=== PATIENT | female | born 1955 | race Caucasian/White ===

== ENCOUNTER → 2016-12-16 | Outpatient (CLI) | payer OTHER | LOC: CIMAGING 09:36 | PROVIDERS: ATTEND Physician Assistant | DX: Z12.31 Encounter for screening mammogram for malignant neoplasm of breast (principal) | CPT/HCPCS: G0202 ==

== ENCOUNTER 2017-02-10 17:43 | Emergency (ER) | payer OTHER ==
[2017-02-10] MEDS ORDERED: RANITIDINE 50 MG/2 ML VIAL IVP ONE (18:08)
[2017-02-10] MEDS ORDERED: methylPREDNISolone SOD SUCC 125 MG/2 ML VIAL IVP ONE (18:08)
[2017-02-10] MEDS ORDERED: NS 1,000 ML IV ONE (18:10)
--- NOTE | 2017-02-10 18:17 | EDPHY ---
H & P Time Seen by Provider: 02/10/17 17:53 HPI/ROS: CHIEF COMPLAINT: Hives, abdominal cramping, swollen lips, swollen eyes HISTORY OF PRESENT ILLNESS: 61-year-old female presents emergency department reporting that last night around 2 in the morning she developed hives. These were associated with swollen lips, swollen eyes, nausea, abdominal cramping. No difficulty swallowing. No shortness of breath. She had been out to dinner earlier that evening, and had a wide variety of dishes over the course of the evening. She has no known food allergies. Denies having tuna, slap [place], chase chase, dolphin fish. Denies a peppery taste any of the foods. She did have scallops. She has not had an allergy to shellfish seafood before. No diarrhea. No other individuals at the dinner have become ill. Patient was otherwise well prior to these events. She did have alcohol last night but denies excessive amounts. Reports no increased stress. The patient did take Benadryl this morning as well as at 3 o'clock this afternoon reports that the itching has improved. She is somewhat sleepy. No fever, chills, chest pain, shortness of breath, palpitations, vomiting, diarrhea, urinary complaints, headache, lightheadedness. REVIEW OF SYSTEMS: Aside from elements discussed in the HPI, a comprehensive 10-point review of systems was reviewed and is negative. PAST MEDICAL HISTORY: Nunu menopausal. SOCIAL HISTORY: Nonsmoker. . VITAL SIGNS Reviewed by me. GENERAL: Well-developed, well-nourished, resting comfortably in no respiratory distress. HEENT: Atraumatic. Eyes: Slight edema of the upper eyelids. Pupils equal round reactive to light. No icterus, no injection. Mouth: moist mucous membranes. No edema of the uvula. Clear airway. No erythema or lesions. Neck: supple with no adenopathy. No stridor. LUNGS: Clear to auscultation bilaterally, no wheezes, rhonchi or rales. CARDIAC: Regular rate and rhythm, no rubs, murmurs or gallops. ABDOMEN: Soft, nontender, nondistended, bowel sounds normal. BACK: No CVA tenderness. EXTREMITIES: No trauma. No edema. Range of motion is normal throughout. NEURO: Alert and oriented, grossly nonfocal. SKIN: Warm and dry, widespread urticarial rash on the arms, chest, back, abdomen, legs. PSYCHIATRIC: Normal mentation, no agitation. Smoking Status: Never smoked Constitutional: Initial Vital Signs Temperature (C) 37.2 C 02/10/17 17:57 Heart Rate 82 02/10/17 17:57 Respiratory Rate 18 02/10/17 17:57 Blood Pressure 134/90 H 02/10/17 17:57 O2 Sat (%) 96 02/10/17 17:57 O2 Delivery Mode Room Air Allergies/Adverse Reactions: erythromycin base [Erythromycin Base] Allergy (Verified 02/14/15 03:23) Penicillins Allergy (Verified 02/14/15 03:23) Sulfa (Sulfonamide Antibiotics) Allergy (Verified 02/14/15 03:23) Home Medications: Medication Instructions Recorded EPINEPHRINE [EPIPEN] 0.3 mg IM ONCE #2 syr 02/10/17 Hormones 02/10/17 predniSONE 40 mg PO DAILY #6 tab 02/10/17 Medical Decision Making ED Course/Re-evaluation: IV placed. Patient received Solu-Medrol IV as well as IV Zantac. She received a L of normal saline. On re-examination the patient reports that she is feeling somewhat better. Still continues to be itchy. Oral dose of Atarax was given. Patient was discharged with a prescription for Atarax, Benadryl, and an EpiPen. Please see the discharge instructions. She understands that the hives will come and go over the next several days potentially. Differential Diagnosis: Differential diagnoses for the patient's symptom complex was considered including but not limited to allergic reaction, urticaria, anaphylaxis, hereditary angioedema, drug-induced reaction, scromboid. - Data Points Medications Given: Discontinued Medications Hydroxyzine HCl (Hydroxyzine Hcl) 25 mg PO Q8HRS ONE Stop: 02/10/17 18:28 Last Admin: 02/10/17 18:33 Dose: 25 mg Sodium Chloride (Ns) 1,000 mls @ 0 mls/hr IV ONCE ONE; Wide Open PRN Reason: Protocol Stop: 02/10/17 18:11 Last Admin: 02/10/17 18:22 Dose: 1,000 mls Methylprednisolone Sodium Succinate (Solu-Medrol) 125 mg IVP EDNOW ONE Stop: 02/10/17 18:09 Last Admin: 02/10/17 18:22 Dose: 125 mg Ranitidine HCl (Zantac) 50 mg IVP EDNOW ONE Stop: 02/10/17 18:09 Last Admin: 02/10/17 18:22 Dose: 50 mg Departure - Departure Disposition: Home, Routine, Self-Care Clinical Impression: Urticaria Condition: Good Instructions: Urticaria (ED), Allergies (ED) Additional Instructions: There are 4 medications used to treat allergic reactions. #1. The first is epinephrine. Please use the epinephrine pen in the future as needed if you develop acute swelling, throat tightness, shortness of breath, or severe rash in the setting of allergic reaction. #2. The second type of medication are antihistamines. The most common antihistamine is diphenhydramine (Benadryl). Dose is 25-50 mg every 6-8 hours as needed for itching and rash. Diphenhydramine can be sedating. You have also been given a prescription for Atarax. This is the same class of drugs as Benadryl. You may use it instead of Benadryl if it is more effective for itching for you. Another type of antihistamine is loratadine (Claritin). This is taken once a day. It is not sedating. Repeat doses of antihistamines may be needed as the hives will come and go over the next several days. You may notice that the hives are worse after exposure to heat, warm showers, or exertion. #3. The third medication is Pepcid which is another type of an antihistamine. Dose is 20 mg once a day for 3 days. This should be taken on a regular basis. #4. The fourth medication is prednisone, which is a steroid. The dose is 40 mg a day x3 doses. Please take this as instructed. #5. Return to emergency department or seek care urgently if severe shortness of breath develops, swelling of the lips, eyelids, or sensation that the throat is closing. Please follow up with your primary care physician as needed. Referrals: Cricket Patterson MD [Primary Care Provider] - As per Instructions Prescriptions: EPINEPHRINE [EPIPEN] 0.3 mg IM ONCE #2 syr predniSONE 40 mg PO DAILY #6 tab
[2017-02-10] MEDS ORDERED: hydrOXYzine HCL 25 MG TAB PO ONE (18:27)
[2017-02-10 19:23] VITALS: BP 110/84; PULSE 80; RESP 16; TEMP 98.6; O2SAT 95
== END 2017-02-10 19:24 | disposition home or self-care (01) ==
LOC: CED 17:43
DX: L50.9 Urticaria, unspecified (principal); E86.9 Volume depletion, unspecified
CPT/HCPCS: 96374; J2780; J2930

== ENCOUNTER 2017-02-11 13:24 | Inpatient (IN) | payer OTHER ==
[2017-02-11] MEDS ORDERED: NS 500 ML IV ONE (13:30)
[2017-02-11] MEDS ORDERED: RANITIDINE 50 MG/2 ML VIAL IVP ONE (13:30)
[2017-02-11] MEDS ORDERED: methylPREDNISolone SOD SUCC 125 MG/2 ML VIAL IVP ONE (13:30)
[2017-02-11] MEDS ORDERED: NS 1,000 ML IV ONE (13:42)
[2017-02-11] MEDS ORDERED: ONDANSETRON 4 MG/2 ML VIAL IVP ONE (13:51)
--- NOTE | 2017-02-11 13:53 | EDPHY ---
H & P Time Seen by Provider: 02/11/17 13:29 HPI/ROS: HPI Allergic reaction. 61-year-old female by private vehicle with significant other. This patient was seen in our emergency department for an urticarial rash over her trunk and extremities. The night before last night she had a seafood dinner which consisted of CC back, scallops and salmon. She denies eating tuna, albacore, macral, or other fish associated with scombroid toxicity. She reports having a allergy to fresh water fish which is caused facial swelling in the past. She reports that the night after this seafood meal she started developing hives on her trunk and extremities. She was then seen in the emergency department at 5: 30 a.m. yesterday. She was treated with IV steroids, ranitidine and Benadryl. She felt better and her rash started to resolve and she was discharged home. She reports that this morning she woke up again feeling nauseous. She then took her allergy medications including Benadryl, Pepcid and prednisone. She reports that about an hour after this she developed nausea followed by vomiting and then facial swelling and redness. She reports 4 episodes of nonbilious nonbloody vomiting. She denies any sensation of swelling in her throat. She has not had any stridor. No difficulty swallowing or breathing. She describes having a tight feeling in her lungs when she takes a deep breath. ROS: Constitutional: No fever, no chills. She has felt fatigued. Eyes: No discharge. No changes in vision. ENT: No sore throat. No nasal congestion or rhinorrhea. As above. Respiratory: No cough. No shortness of breath. As above. Cardiac: No chest pain, no palpitations. Gastrointestinal: No abdominal pain, no vomiting, no diarrhea. Genitourinary: No hematuria. No dysuria or increased frequency with urination. Musculoskeletal: No back pain. No neck pain. No myalgias or arthralgias. Skin: As above. Neurological: No headache. No focal weakness or altered sensation. No paresthesias. No hot cold reversal. Past medical history: As above. She denies any other significant past medical history. Social history: She is and here with her . Nonsmoker. Social alcohol. Physical Exam: General Appearance: Alert, flat affect. This patient is responding to questions appropriately and in full sentences. No voice changes. This patient appears well-hydrated and well-nourished. Eyes: Pupils equal and round no pallor or injection. No lid edema, erythema or injection. ENT, Mouth: Mucous membranes are moist. The pharyngeal tissues are unremarkable. No edema or swelling. No asymmetry suggestive of abscess. No erythema or exudates. No stridor on auscultation of her neck. No voice changes. Respiratory: There are no retractions, lungs are clear to auscultation with good air movement bilaterally. Cardiovascular: Regular rate and rhythm. No murmur. Gastrointestinal: Abdomen is soft and nontender, no masses, bowel sounds normal. No focal tenderness at McBurney's point. No Krueger sign. Neurological: Motor sensory function is grossly intact. Cranial nerves are normal. Gait is normal. Skin: Warm and dry, patchy, erythematous blanching rash on chest and scantly on stomach. No petechiae. Musculoskeletal: Neck is supple and nontender. Extremities are symmetrical. All joints range without pain or impingement. Psychiatric: No agitation. No depression. Database: EKG: EKG time is 2:20 p.m.; EKG shows a narrow complex normal sinus rhythm with a ventricular rate of 86. Atrial premature complexes noted. Low voltage noted. The LA, QRS, QT intervals are within normal limits. There are no ST-T wave changes indicative of ischemic or injury pattern. No evidence of right heart strain. Interpreted by me. Imaging: Chest x-ray AP portable; the cardiac mediastinal silhouette is unremarkable. No evidence of significant pulmonary edema, infiltrate or pneumothorax. No acute cardiopulmonary disease process noted. Interpreted by me. Procedures: Emergency department course: IV established. She was started on IV normal saline with 500 cc to be given next hour. She was given 125 mg of IV Solu-Medrol, 50 mg of IV ranitidine and 25 mg of IV Benadryl. She was given 4 mg of IV Zofran for nausea. 2:00 p.m., patient started dry heaving while she was being given Zofran. She was given 6.25 mg of IV Phenergan as well. 2:15 p.m., patient re-evaluated. She is feeling much better at this time. Her facial swelling has decreased. She still has some facial erythema over her bilateral maxilla. She still has some mild lid edema and swelling of her lips. 2:40 p.m., patient re-evaluated. She states she is feeling better. Her lungs are clear on auscultation. She has no stridor. No voice changes. However she still has erythematous and edematous changes involving her face. Specifically her maxilla area, her eyelids and her lips. Repeat pharyngeal exam is unchanged from above. I discussed admission with her and her . She endorses. She does not feel comfortable going home. Hospitalist was paged. 2:45 p.m., spoke with on-call hospitalist. Patient accepted for admission. 2:50 p.m., spoke with Dr. Spears. Case discussed in detail. She accepts this patient for admission. She asked that we give the patient 300 mcg of intramuscular epinephrine prior to transport. This was done. The patient will be admitted to the step-down unit initially. 2:55 p.m., spoke with clerical warehouse worker. Informed that because the patient is being admitted to the step-down unit she would require transport by ambulance. I discussed this with both the patient and her . They are declining transport service by ambulance. In my professional opinion they both understand the risks of declining this service which I reviewed with him thoroughly. The patient competently engages in shared decision making. They demonstrate capacitance to make decisions. The patient's remaining emergency department course under my care has been uneventful. She was transported by private vehicle at 3:30 p.m. in stable and improved condition. Differential Diagnosis: The differential diagnosis on this patient includes but is not limited to allergic reaction. Scombroid toxidrome, Ciguatera toxicity, anaphylaxis unlikely. This represents a partial list of diagnoses considered. These considerations are based on history, physical exam, past history, reassessment and diagnostic testing. Smoking Status: Never smoked Constitutional: Initial Vital Signs Temperature (C) 36.8 C 02/11/17 13:31 Heart Rate 80 02/11/17 13:31 Respiratory Rate 16 02/11/17 13:31 Blood Pressure 152/98 H 02/11/17 13:31 O2 Sat (%) 95 02/11/17 13:31 O2 Delivery Mode Room Air Allergies/Adverse Reactions: erythromycin base [Erythromycin Base] Allergy (Verified 02/14/15 03:23) Penicillins Allergy (Verified 02/14/15 03:23) Sulfa (Sulfonamide Antibiotics) Allergy (Verified 02/14/15 03:23) white fish Allergy (Uncoded 02/11/17 13:34) Home Medications: Medication Instructions Recorded EPINEPHRINE [EPIPEN] 0.3 mg IM ONCE #2 syr 02/10/17 Hormones 02/10/17 predniSONE 40 mg PO DAILY #6 tab 02/10/17 BENADRYL 02/11/17 Pepcid AC 02/11/17 Medical Decision Making - Diagnostics Imaging Results: Imaging Impressions Chest X-Ray 02/11/17 13:42 Impression: Minimal bibasilar atelectasis. - Data Points Laboratory Results: Laboratory Results 02/11/17 14:10 02/11/17 14:10 02/11/17 02/11/17 14:10 14:10 WBC 19.93 10^3/uL H 10^3/uL (3.80-9.50) RBC 5.13 10^6/uL 10^6/uL (4.18-5.33) Hgb 15.2 g/dL g/dL (12.6-16.3) Hct 44.7 % % (38.0-47.0) MCV 87.1 fL fL (81.5-99.8) MCH 29.6 pg pg (27.9-34.1) MCHC 34.0 g/dL g/dL (32.4-36.7) RDW 12.7 % % (11.5-15.2) Plt Count 288 10^3/uL 10^3/uL (150-400) MPV 9.4 fL fL (8.7-11.7) Neut % (Auto) 88.3 % H % (39.3-74.2) Lymph % (Auto) 8.0 % L % (15.0-45.0) [place] % (Auto) 3.3 % L % (4.5-13.0) Eos % (Auto) 0.0 % L % (0.6-7.6) Baso % (Auto) 0.1 % L % (0.3-1.7) Nucleat RBC Rel Count 0.0 % % (0.0-0.2) Absolute Neuts (auto) 17.62 10^3/uL H 10^3/uL (1.70-6.50) Absolute Lymphs (auto) 1.59 10^3/uL 10^3/uL (1.00-3.00) Absolute Monos (auto) 0.65 10^3/uL 10^3/uL (0.30-0.80) Absolute Eos (auto) 0.00 10^3/uL L 10^3/uL (0.03-0.40) Absolute Basos (auto) 0.02 10^3/uL 10^3/uL (0.02-0.10) Absolute Nucleated RBC 0.00 10^3/uL 10^3/uL (0-0.01) Immature Gran % 0.3 % % (0.0-1.1) Immature Gran # 0.05 10^3/uL 10^3/uL (0.00-0.10) Sodium 142 mEq/L mEq/L (134-144) Potassium 3.7 mEq/L mEq/L (3.5-5.2) Chloride 105 mEq/L mEq/L (97-110) Carbon Dioxide 22 mEq/l mEq/l (22-31) Anion Gap 15 mEq/L mEq/L (8-16) BUN 11 mg/dL mg/dL (7-23) Creatinine 0.7 mg/dL mg/dL (0.6-1.0) Estimated GFR > 60 Glucose 124 mg/dL H mg/dL (70-100) Calcium 10.1 mg/dL mg/dL (8.5-10.4) Total Bilirubin 0.9 mg/dL mg/dL (0.1-1.4) Conjugated Bilirubin 0.2 mg/dL mg/dL (0.0-0.5) Unconjugated Bilirubin 0.7 mg/dL mg/dL (0.0-1.1) AST 16 IU/L IU/L (14-46) ALT 24 IU/L IU/L (9-52) Alkaline Phosphatase 57 IU/L IU/L (38-126) Total Protein 6.9 g/dL g/dL (6.3-8.2) Albumin 4.2 g/dL g/dL (3.5-5.0) Lipase 34 IU/L IU/L (23-300) Medications Given: Discontinued Medications Diphenhydramine HCl (Benadryl Injection) 50 mg IVP EDNOW ONE Stop: 02/11/17 13:31 Last Admin: 02/11/17 13:46 Dose: 50 mg Sodium Chloride (Ns) 1,000 mls @ 0 mls/hr IV ONCE ONE PRN Reason: Wide Open Stop: 02/11/17 13:43 Last Admin: 02/11/17 13:43 Dose: 1,000 mls Methylprednisolone Sodium Succinate (Solu-Medrol) 125 mg IVP EDNOW ONE Stop: 02/11/17 13:31 Last Admin: 02/11/17 13:44 Dose: 125 mg Ondansetron HCl (Zofran) 4 mg IVP EDNOW ONE Stop: 02/11/17 13:52 Last Admin: 02/11/17 13:54 Dose: 4 mg Promethazine HCl (Phenergan) 6.25 mg IVP ONCE ONE Stop: 02/11/17 13:57 Last Admin: 02/11/17 13:58 Dose: 6.25 mg Promethazine HCl (Phenergan) 6.25 mg IVP EDNOW ONE Stop: 02/11/17 13:57 Last Admin: 02/11/17 13:59 Dose: Not Given Ranitidine HCl (Zantac) 50 mg IVP EDNOW ONE Stop: 02/11/17 13:31 Last Admin: 02/11/17 13:45 Dose: 50 mg Departure - Departure Disposition: [facility] Clinical Impression: Allergic reaction, Angioedema, Vomiting, Leukocytosis Condition: Fair Referrals: Patient,NotPresent [Primary Care Provider] - As per Instructions
[2017-02-11] MEDS ORDERED: PROMETHAZINE HCL 25 MG/ML INJ ONE ×2 (13:56→20:16)
[2017-02-11] MEDS ORDERED: PROMETHAZINE HCL 25 MG/ML INJ IVP ONE ×2 (13:56)
[2017-02-11 14:22] LABS: % IMMATURE GRANULYOCYTES 0.3 % (0.0-1.1); ABSOLUTE IMMATURE GRANULOCYTES 0.05 10^3/uL (0.00-0.10); ADD DIFF? NO; ADD MORPH? NO; ADD SCAN? NO; ATYPICAL LYMPHOCYTE FLAG 0 (0-99); FRAGMENT RBC FLAG 0 (0-99); HEMATOCRIT 44.7 % (38.0-47.0); HEMOGLOBIN 15.2 g/dL (12.6-16.3); LEFT SHIFT FLG 0 (0-99); LIPEMIA HEMOLYSIS FLAG 90 (0-99); MEAN CELL HEMOGLOBIN 29.6 pg (27.9-34.1); MEAN CELL VOLUME 87.1 fL (81.5-99.8); MEAN PLATELET VOLUME 9.4 fL (8.7-11.7); PLATELET CLUMPS FLAG 0 (0-99); PLATELET COUNT 288 10^3/uL (150-400); RED BLOOD CELL COUNT 5.13 10^6/uL (4.18-5.33); RED CELL DISTRIBUTION WIDTH 12.7 % (11.5-15.2)
--- NOTE | 2017-02-11 14:23 | CPEKG ---
Heart Rate: 86 RR Interval: 698 P-R Interval: 168 QRSD Interval: 78 QT Interval: 384 QTC Interval: 460 P [place]: 56 QRS [place]: 48 T Wave [place]: 44 EKG Severity - ABNORMAL ECG - EKG Impression: SINUS RHYTHM EKG Impression: MULTIPLE ATRIAL PREMATURE COMPLEXES EKG Impression: LOW VOLTAGE THROUGHOUT EKG Impression: BORDERLINE R WAVE PROGRESSION, ANTERIOR LEADS Electronically Signed By: Adam Ellington 11-Feb-2017 14:27:38
[2017-02-11 14:37] LABS: ALANINE AMINOTRANSFERASE 24 IU/L (9-52); ALBUMIN 4.2 g/dL (3.5-5.0); ALKALINE PHOSPHATASE 57 IU/L (38-126); ANION GAP 15 mEq/L (8-16); ASPARTATE AMINOTRANSFERASE 16 IU/L (14-46); BILIRUBIN,TOTAL 0.9 mg/dL (0.1-1.4); BILIRUBIN-CONJUGATED 0.2 mg/dL (0.0-0.5); BILIRUBIN-UNCONJUGATED 0.7 mg/dL (0.0-1.1); CALCIUM 10.1 mg/dL (8.5-10.4); CARBON DIOXIDE 22 mEq/l (22-31); CHLORIDE 105 mEq/L (97-110); CREATININE 0.7 mg/dL (0.6-1.0); GLOMERULAR FILTRATION RATE > 60; GLUCOSE 124 mg/dL (70-100); POTASSIUM 3.7 mEq/L (3.5-5.2); SODIUM 142 mEq/L (134-144); TOTAL PROTEIN 6.9 g/dL (6.3-8.2)
[2017-02-11] MEDS ORDERED: ACETAMINOPHEN 325 MG TAB PO PRN (15:57)
[2017-02-11] MEDS ORDERED: ONDANSETRON DISINTEGRATING 4 MG TAB PO PRN (15:57)
[2017-02-11] MEDS ORDERED: diphenhydrAMINE 25 MG CAP PO PRN (15:57)
[2017-02-11] MEDS ORDERED: ALBUTEROL 3 ML DEYVIAL IH PRN (15:57)
[2017-02-11] MEDS: ONDANSETRON 4 MG/2 ML VIAL IVP PRN (18:36)
--- NOTE | 2017-02-11 19:17 | GHP ---
[f rep st] HISTORY AND PHYSICAL DATE OF ADMISSION: 02/11/2017 CHIEF COMPLAINT: Facial swelling and rash. HISTORY OF PRESENT ILLNESS: A 61-year-old female who presented to the emergency department on 2016 with complaints of a rash across her trunk, chest and extremities. The patient reports having e aten seafood the evening before, the majority of which she was accustomed to be eating. However, did eat a scallop which she had not had before and then hours after eating that food developed hives. Car vanegas presented to the emergency department. She was treated and sent home with an EpiPen and appropriat e medications for anaphylaxis. The patient took the medications as prescribed and then woke this morning with symptoms of abdominal upset, then vomiting and then the development of facial swelling as well as a facial rash. Therefore , re-presented to the hospital for evaluation. She reports difficulty breathing, but not difficulty managing her secretions. Denies any swelling of her tongue. Denies any rash on her trunk or lower e xtremities. Reports that the rash on her upper extremities is nearly resolved. PAST MEDICAL HISTORY: 1. Microscopic colitis. 2. History of gastritis. SOCIAL HISTORY: Negative for tobacco, marijuana, illicit drugs. Positive for alcohol, not daily. FAMILY HISTORY: Negative for seafood allergies or known food allergies. REVIEW OF SYSTEMS: A 10-point review of systems is negative with the exception of that reported in t he HPI. PHYSICAL EXAMINATION: VITAL SIGNS: Blood pressure 109/71, heart rate 76, respiratory rate 19, 91% o n room air, 36.8. GENERAL: This is a healthy-appearing female in no acute distress. HEENT: Exam i s notable for facial swelling around her eyes and the upper portion of bilateral cheeks. No stridor is appreciated during interview. CARDIAC: Patient is regular rate and rhythm. No murmurs. PULMONAR Y: Good respiratory effort. Clear to auscultation bilaterally. GASTROINTESTINAL: Positive bowel s ounds. Abdomen is soft. MUSCULOSKELETAL: Negative for any lower extremity edema. SKIN: Exam is n egative for any rashes on the trunk, upper or lower extremities. She does have notable erythema acro ss both of her cheeks and remnant healing or resolving urticaria at the base of her back. NEUROLOGIC : She is alert and oriented x3. PSYCHIATRIC: She is pleasant and cooperative on interview and exam ination. DATA: White count 19.9, hematocrit 44.7, platelets of 288. Creatinine 0.7. Liver function tests ar e normal. EKG, which I personally reviewed and interpreted, shows sinus rhythm, normal axis, normal intervals w ith no acute ST-T changes. ASSESSMENT AND PLAN: This is a 61-year-old female, presenting with recurrent rash and new facial swe lling. 1. 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 Patient did describe some difficulty breathing which resolved wi th treatment of epinephrine in the emergency department. Will admit the patient for observation, rep eat epinephrine only if she develops respiratory symptoms this evening. Will continue on H2 blockade , Benadryl, ranitidine and prednisone previously prescribed. Can use antiemetics as needed for nause a and/or vomiting. 2. History of gastritis. Have recommended the patient continue the Pepcid prescribed, particularly while she is on prednisone. 3. New allergy suspected secondary to scallops. The patient has been prescribed EpiPen and appropri ate medication as an outpatient by the emergency room yesterday. Recommended that she see an allergi st after disposition for appropriate skin testing and monitoring in the outpatient setting. 4. Prophylaxis with Lovenox. DIET: Regular. DISPOSITION: I expect in less than 2 midnights if the patient responds well to treatment and does no t have recurrence of symptoms. I have discussed the case with the emergency room physician. Patient will be triaged to the PCU for monitoring and care. /[id number]/MODL
[2017-02-11] MEDS: FAMOTIDINE 20 MG TAB PO SCH (20:05)
[2017-02-11] MEDS: PROMETHAZINE HCL 25 MG/ML INJ IVP PRN (20:19)
[2017-02-11] MEDS ORDERED: RANITIDINE HCL 150 MG/10 ML UDCUP PO SCH (21:00)
[2017-02-11] MEDS: MELATONIN 3 MG TAB PO SCH (22:30)
[2017-02-11] MEDS: LORazepam 2 MG/ML INJ IVP PRN (23:43)
[2017-02-12] MEDS: MBX SOLN 30 ML BOTTLE PO PRN ×5 (00:04→21:48)
[2017-02-12] MEDS: ONDANSETRON 4 MG/2 ML VIAL IVP PRN ×3 (00:09→17:52)
[2017-02-12] MEDS: PROMETHAZINE HCL 25 MG/ML INJ IVP PRN ×3 (02:02→21:42)
[2017-02-12 05:59] LABS: % IMMATURE GRANULYOCYTES 0.6 % (0.0-1.1); ADD DIFF? NO; ADD MORPH? NO; ADD SCAN? NO; ATYPICAL LYMPHOCYTE FLAG 0 (0-99); FRAGMENT RBC FLAG 0 (0-99); HEMATOCRIT 41.7 % (38.0-47.0); HEMOGLOBIN 14.7 g/dL (12.6-16.3); LEFT SHIFT FLG 0 (0-99); LIPEMIA HEMOLYSIS FLAG 90 (0-99); MEAN CELL HEMOGLOBIN 30.8 pg (27.9-34.1); MEAN CELL HEMOGLOBIN CONCENTR. 35.3 g/dL (32.4-36.7); MEAN CELL VOLUME 87.4 fL (81.5-99.8); MEAN PLATELET VOLUME 9.3 fL (8.7-11.7); PLATELET CLUMPS FLAG 0 (0-99); PLATELET COUNT 267 10^3/uL (150-400); RED BLOOD CELL COUNT 4.77 10^6/uL (4.18-5.33); RED CELL DISTRIBUTION WIDTH 12.8 % (11.5-15.2)
[2017-02-12 06:13] LABS: ANION GAP 16 mEq/L (8-16); CARBON DIOXIDE 22 mEq/l (22-31); CHLORIDE 104 mEq/L (97-110); CREATININE 0.7 mg/dL (0.6-1.0); GLOMERULAR FILTRATION RATE > 60; GLUCOSE 145 mg/dL (70-100); POTASSIUM 3.6 mEq/L (3.5-5.2); SODIUM 142 mEq/L (134-144)
[2017-02-12] MEDS: LORazepam 2 MG/ML INJ IVP PRN ×2 (06:24→21:47)
[2017-02-12] MEDS: ENOXAPARIN 40 MG/0.4 ML SYR SC SCH (08:58)
[2017-02-12] MEDS ORDERED: predniSONE 20 MG TAB PO SCH (09:00)
[2017-02-12] MEDS ORDERED: METOCLOPRAMIDE 10 MG/2 ML VIAL IVP PRN (10:10)
--- NOTE | 2017-02-12 10:18 | HOSPPROG ---
Hospitalist Progress Note Assessment/Plan: Anaphylaxis - Symptoms improved. -change to IV solumedrol, not tolerating oral pred as below -change to IV Pepcid -cont prn IV benadryl -prn epi if recurrent symptoms, not currently indicated Nausea / vomiting - she has not tolerated oral prednisone. Symptoms not controlled with phenergan, zofran. Has h/o ulcers and H pylori, last scoped 2 yrs ago. Electrolytes and renal function nl. VSS. 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 Full code DVT PPLX - Lovenox Dispo - change to inpt for ongoing management of N/V. Subjective: Pt feels terrible. States she vomited all night with dry heaves. No fevers. Facial swelling improved. No CP or SOB. Hives improved. Objective: Vital Signs Temp Pulse Resp BP Pulse Ox 37.0 C 87 24 H 154/89 H 92 02/12/17 08:00 02/12/17 08:00 02/12/17 08:00 02/12/17 08:00 02/12/17 08:00 Laboratory Results 02/12/17 05:54 02/12/17 05:54 02/11/17 02/12/17 02/13/17 05:59 05:59 05:59 Intake Total 0 Balance 0 - Physical Exam Constitutional: no apparent distress Eyes: PERRL Ears, Nose, Mouth, Throat: moist mucous membranes Cardiovascular: regular rate and rhythym Respiratory: no respiratory distress, clear to auscultation Gastrointestinal: normoactive bowel sounds, soft, non-tender abdomen Skin: warm Musculoskeletal: full muscle strength Neurologic: AAOx3 Psychiatric: interacting appropriately ICD10 Worksheet Patient Problems: Problems Problem Status Onset Allergic reaction Acute Angioedema Acute Leukocytosis Acute Vomiting Acute
[2017-02-12] MEDS: FAMOTIDINE 20 MG TAB PO SCH (10:56)
--- NOTE | 2017-02-12 11:03 | PDMN ---
Medical Necessity Medical necessity: C/M review: Patient meets INPT criteria under MCG M-370 Vomiting; Acute anaphylaxis (improved 02/12/2017), acute and persistent nausea, vomiting, inability to tolerate oral fluids, food, medications, requiring ongoing cardiac monitoring, IV fluids, frequent doses IV Zofran and IV Phanergan , IV Solumedrol QD, IV Pepcid Q 12 hrs., IV Benadryl, IV Reglan, comorbid 02/10 ED visit for allergic reaction (with hives over trunk, chest, extremities ) to seafood and a scallop which patient had not eaten before treated with appropriate meds, 02/11/2017 worsening of anaphylaxis symptoms prior to this admission. MD anticipates . 2 MN LOS for ongoing med nec for eval and TX of above, history of EGD 18 months ago positive for H. pylori which was treated, microscopic colitis. MD anticipates > 2 MN LOS for ongoing med nec for eval and TX of above.
[2017-02-12] MEDS: methylPREDNISolone SOD SUCC 40 MG/ML VIAL IVP SCH (11:16)
[2017-02-12] MEDS: POTASSIUM Cl (KCl) 20 MEQ in 1/2 NS 1,000 ML IV SCH ×2 (11:22→23:15)
[2017-02-12] MEDS: FAMOTIDINE 20 MG/NACL 50 ML IV SCH ×2 (11:22→20:51)
[2017-02-12] MEDS: PANTOPRAZOLE SODIUM 40 MG VIAL IVP SCH ×2 (11:27→20:51)
--- NOTE | 2017-02-12 14:24 | ASMTCMCOM ---
CM Note CM Note Notes: Pt admitted for suspected biphasic anaphylaxis; new possible allergy to scallops. Pt w/ difficulty breathing, given epinephrine in ED; admitted for further observation. Pt lives w/ her . Anticipate pt will likely discharge home independently when medically stable. CM will cont to follow. Current discharge plan: Home independently w/ family support Date Signed: 02/12/2017 02:24 PM Electronically Signed By:Anaya Desai RN
[2017-02-12] MEDS: MELATONIN 3 MG TAB PO SCH (19:47)
[2017-02-13] MEDS: MBX SOLN 30 ML BOTTLE PO PRN ×3 (03:25→20:17)
[2017-02-13 04:09] LABS: HEMATOCRIT 45.6 % (38.0-47.0); HEMOGLOBIN 16.2 g/dL (12.6-16.3); MEAN CELL HEMOGLOBIN 30.9 pg (27.9-34.1); MEAN CELL HEMOGLOBIN CONCENTR. 35.5 g/dL (32.4-36.7); MEAN CELL VOLUME 86.9 fL (81.5-99.8); RED BLOOD CELL COUNT 5.25 10^6/uL (4.18-5.33); RED CELL DISTRIBUTION WIDTH 12.6 % (11.5-15.2)
[2017-02-13] MEDS ORDERED: NON-FORMULARY NEW DRUG (Progesterone, Micronized [Progesterone] 200 MG) PO SCH (09:00)
[2017-02-13] MEDS: methylPREDNISolone SOD SUCC 40 MG/ML VIAL IVP SCH (09:02)
[2017-02-13] MEDS: PANTOPRAZOLE SODIUM 40 MG VIAL IVP SCH ×2 (09:02→21:05)
[2017-02-13] MEDS: FAMOTIDINE 20 MG/NACL 50 ML IV SCH ×2 (09:02→20:17)
[2017-02-13] MEDS: ENOXAPARIN 40 MG/0.4 ML SYR SC SCH (09:03)
--- NOTE | 2017-02-13 09:53 | HOSPPROG ---
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 Nausea / vomiting - she has not tolerated oral prednisone. Has h/o ulcers and H pylori, last scoped 2 yrs ago. Electrolytes and renal function nl. VSS. -GI path panel if develops diarrhea -cont anti-emetics, add prn reglan -cpnt IVF's for hydration -send h pylori stool Ag -cont IV PPI -add carafate given h/o ulcers -Case discussed with GI yesterday and they do no wish to do EGD at this time , but recommend letting her acute illness improve. If not improved by tomorrow , will request formal consult from GI tomorrow H/O microscopic colitis - followed by GI of the [facility]. Elevated BP - this is not her baseline -start norvasc, low dose Full code DVT PPLX - Lovenox Dispo - cont inpt for ongoing management of N/V. Subjective: Pt still feels poorly. No fevers. No vomiting today "yet". She is tolerating patricia janusz, apple sauce, and yogurt for breakfast. Hives returned on arms. No SOB, facial swelling or swelling of oral cavity. Objective: Vital Signs Temp Pulse Resp BP Pulse Ox 37.1 C 105 H 16 155/101 H 93 02/13/17 07:37 02/13/17 07:37 02/13/17 07:37 02/13/17 07:37 02/13/17 07:37 Laboratory Results 02/13/17 03:22 02/12/17 02/13/17 02/14/17 05:59 05:59 05:59 Intake Total 2598 Output Total 1750 Balance 848 - Physical Exam Constitutional: no apparent distress Eyes: PERRL Ears, Nose, Mouth, Throat: moist mucous membranes Cardiovascular: regular rate and rhythym, no murmur, rub, or gallop Respiratory: no respiratory distress, clear to auscultation Gastrointestinal: normoactive bowel sounds, soft, non-tender abdomen Skin: warm, other (urticaria on b/l arms) Musculoskeletal: full muscle strength Neurologic: AAOx3 Psychiatric: interacting appropriately ICD10 Worksheet Patient Problems: Problems Problem Status Onset Allergic reaction Acute Angioedema Acute Leukocytosis Acute Vomiting Acute
[2017-02-13] MEDS: POTASSIUM Cl (KCl) 20 MEQ in 1/2 NS 1,000 ML IV SCH ×2 (11:18→20:17)
[2017-02-13] MEDS: SUCRALFATE 1 GM/10 ML UDCUP PO SCH ×3 (11:52→20:17)
[2017-02-13] MEDS: PROGESTERONE,MICR 100 MG CAP PO SCH (12:01)
[2017-02-13] MEDS ORDERED: LACTULOSE 20 GM/30 ML UDCUP PO PRN (15:29)
[2017-02-13] MEDS ORDERED: POLYETHYLENE GLYCOL 3350 17 GM PKT PO PRN (15:29)
[2017-02-13] MEDS ORDERED: MAGNESIUM HYDROXIDE 30 ML UDCUP PO PRN (15:29)
[2017-02-13] MEDS ORDERED: BISACODYL 10 MG SUPP PR PRN (15:29)
[2017-02-13] MEDS: LABETALOL HCL 100 MG TAB PO SCH ×2 (16:34→21:05)
[2017-02-13] MEDS: MELATONIN 3 MG TAB PO SCH ×2 (21:05→21:13)
[2017-02-13] MEDS: SENNOSIDES/DOCUSATE SODIUM TAB PO SCH (21:05)
[2017-02-13] MEDS: ZOLPIDEM TARTRATE 5 MG TAB PO PRN (21:05)
[2017-02-13] MEDS: DOXEPIN HCL 25 MG CAP PO SCH (21:13)
[2017-02-13] MEDS: ONDANSETRON 4 MG/2 ML VIAL IVP PRN (21:18)
[2017-02-14] MEDS: PROMETHAZINE HCL 25 MG/ML INJ IVP PRN (03:28)
[2017-02-14] MEDS: MBX SOLN 30 ML BOTTLE PO PRN ×2 (03:35→05:02)
[2017-02-14 04:02] LABS: HEMATOCRIT 44.2 % (38.0-47.0); MEAN CELL HEMOGLOBIN 30.5 pg (27.9-34.1); MEAN CELL HEMOGLOBIN CONCENTR. 36.2 g/dL (32.4-36.7); MEAN CELL VOLUME 84.2 fL (81.5-99.8); RED BLOOD CELL COUNT 5.25 10^6/uL (4.18-5.33); RED CELL DISTRIBUTION WIDTH 12.1 % (11.5-15.2)
[2017-02-14] MEDS: ONDANSETRON 4 MG/2 ML VIAL IVP PRN (05:00)
[2017-02-14] MEDS: POTASSIUM Cl (KCl) 20 MEQ in 1/2 NS 1,000 ML IV SCH (05:03)
[2017-02-14] MEDS: LORazepam 2 MG/ML INJ IVP PRN (05:09)
--- NOTE | 2017-02-14 08:31 | HOSPPROG ---
Hospitalist Progress Note Assessment/Plan: Anaphylaxis - No more anaphylaxis symptoms and hives also resolved -cont IV solumedrol, IV Pepcid -cont benadryl -added doxepin for urticaria -prn epi if recurrent symptoms, not currently indicated Nausea / vomiting - she has not tolerated oral prednisone. Has h/o ulcers and H pylori (treated), last scoped 2 yrs ago. Electrolytes and renal function nl. VSS. -Case discussed with GI again and pt is NPO with plans for EGD today, but likely won't happen til 6-7 pm -GI path panel if develops diarrhea -cont anti-emetics, prn reglan -cont IVF's for hydration -send h pylori stool Ag -cont IV PPI -add carafate given h/o ulcers H/O microscopic colitis - followed by GI of the [facility]. Elevated BP - this is not her baseline -started norvasc, labetalol Full code DVT PPLX - Lovenox Dispo - cont inpt for ongoing management of N/V. Subjective: Pt still c/o epigastric pain, "feels like my ulcer is back". Vomited again overnight. Not tolerating po. No fevers. No BM since admission. Objective: Vital Signs Temp Pulse Resp BP Pulse Ox 36.8 C 89 16 133/89 H 94 02/14/17 08:00 02/14/17 08:00 02/14/17 08:00 02/14/17 08:00 02/14/17 08:00 Laboratory Results 02/14/17 03:22 02/13/17 02/14/17 02/15/17 05:59 05:59 05:59 Intake Total 2598 4448 Output Total 1750 2700 Balance 848 1748 - Physical Exam Constitutional: no apparent distress Eyes: PERRL Ears, Nose, Mouth, Throat: moist mucous membranes Cardiovascular: regular rate and rhythym Respiratory: no respiratory distress Gastrointestinal: normoactive bowel sounds, soft, non-tender abdomen Skin: warm Musculoskeletal: full muscle strength Neurologic: AAOx3 Psychiatric: interacting appropriately ICD10 Worksheet Patient Problems: Problems Problem Status Onset Allergic reaction Acute Angioedema Acute Leukocytosis Acute Vomiting Acute
[2017-02-14] MEDS ORDERED: D5W 1/2 NS W/ 20 KCl/L 1,000 ML IV SCH (08:45)
[2017-02-14] MEDS: PANTOPRAZOLE SODIUM 40 MG VIAL IVP SCH (09:16)
[2017-02-14] MEDS: methylPREDNISolone SOD SUCC 40 MG/ML VIAL IVP SCH (09:16)
[2017-02-14] MEDS: SENNOSIDES/DOCUSATE SODIUM TAB PO SCH ×2 (09:17→20:22)
[2017-02-14] MEDS: LABETALOL HCL 100 MG TAB PO SCH (09:17)
[2017-02-14] MEDS: FAMOTIDINE 20 MG/NACL 50 ML IV SCH (09:18)
[2017-02-14] MEDS: ENOXAPARIN 40 MG/0.4 ML SYR SC SCH (10:21)
[2017-02-14] MEDS: SUCRALFATE 1 GM/10 ML UDCUP PO SCH ×4 (11:11→20:22)
[2017-02-14] MEDS: PROGESTERONE,MICR 100 MG CAP PO SCH (12:05)
[2017-02-14 15:22] LABS: ANION GAP 14 mEq/L (8-16); CALCIUM 9.4 mg/dL (8.5-10.4); CARBON DIOXIDE 18 mEq/l (22-31); CHLORIDE 92 mEq/L (97-110); CREATININE 0.8 mg/dL (0.6-1.0); GLOMERULAR FILTRATION RATE > 60; GLUCOSE 163 mg/dL (70-100); POTASSIUM 4.2 mEq/L (3.5-5.2); SODIUM 124 mEq/L (134-144)
[2017-02-14] MEDS ORDERED: MIDAZOLAM 2 MG/2 ML VIAL ONE (15:22)
[2017-02-14] MEDS ORDERED: fentaNYL 100 MCG/2 ML INJ ONE (15:23)
[2017-02-14] MEDS ORDERED: fentaNYL 100 MCG/2 ML INJ IVP ONE (15:35)
[2017-02-14] MEDS ORDERED: MIDAZOLAM 2 MG/2 ML VIAL IVP ONE (15:35)
--- NOTE | 2017-02-14 15:43 | GIREPORT ---
[facility] Surgical Services - Endoscopy Department Patient Name: Vero Bolden Procedure Date: 02/14/2017 3:16 PM Patient Type: Inpatient Attending MD/ ER Physician: Josep Robertson MD Procedure: Upper GI endoscopy Indications: Epigastric abdominal pain Providers: Josep Robertson MD Medicines: Midazolam 5 mg IV, Fentanyl 125 micrograms IV Complications: No immediate complications. Description of Procedure: After obtaining informed consent, the endoscope was passed under direct vision. Throughout the procedure, the patient's blood pressure, pulse, and oxygen saturations were monitored continuously. The Endoscope was intro duced through the mouth, and advanced to the third part of duodenum. The uppe r GI endoscopy was accomplished without difficulty. The patient tolerated th e procedure well. Moderate Sedation: Moderate (conscious) sedation was administered by the endoscopy nurse corky hall supervised by the endoscopist. The following parameters were monitored: oxygen saturation, heart rate, blood pressure, and response to care. To jakob physician intraservice time was 13 minutes. Findings: The examined esophagus was normal. Diffuse moderate inflammation characterized by congestion (edema), eros ions, erythema and shallow ulcerations was found in the gastric antrum. Biops ies were taken with a cold forceps for histology. The examined duodenum was normal. Estimated Blood Loss: Estimated blood loss: none. Post Op Diagnosis: - Normal esophagus. - Gastritis. Biopsied. - Normal examined duodenum. Recommendation: - Return patient to hospital [facility] for possible discharge same day. - Advance diet as tolerated. - Use a proton pump inhibitor PO BID for 12 weeks. - Await pathology results. - Perform an H. pylori stool antigen (HpSA) test. Attending Participation: I personally performed the entire procedure. Josep Robertson MD Josep Robertson MD 02/14/2017 3:43:23 PM This report has been signed electronicallyJosep Robertson MD Number of Addenda: 0 Note Initiated On: 02/14/2017 3:16 PM [email or web address]
[2017-02-14] MEDS ORDERED: hydrALAZINE 25 MG TAB PO PRN (15:54)
[2017-02-14 18:36] LABS: ANION GAP 15 mEq/L (8-16); CALCIUM 9.6 mg/dL (8.5-10.4); CARBON DIOXIDE 18 mEq/l (22-31); CHLORIDE 92 mEq/L (97-110); CREATININE 0.8 mg/dL (0.6-1.0); GLOMERULAR FILTRATION RATE > 60; GLUCOSE 171 mg/dL (70-100); POTASSIUM 4.5 mEq/L (3.5-5.2); SODIUM 125 mEq/L (134-144)
[2017-02-14 19:43] VITALS: RESP 16
[2017-02-14] MEDS: FAMOTIDINE 20 MG TAB PO SCH (20:22)
[2017-02-14] MEDS: PANTOPRAZOLE SODIUM 40 MG TAB PO SCH (20:22)
[2017-02-14] MEDS: ZOLPIDEM TARTRATE 5 MG TAB PO PRN (21:23)
[2017-02-14] MEDS: DOXEPIN HCL 25 MG CAP PO SCH (23:24)
[2017-02-14] MEDS: MELATONIN 3 MG TAB PO SCH (23:24)
--- NOTE | 2017-02-15 03:03 | GCON ---
[f rep st] CONSULTATION INPATIENT CONSULTATION NOTE. REFERRING PHYSICIAN: Shasta Montenegro MD REASON FOR CONSULTATION: Abdominal pain. CHIEF COMPLAINT: Abdominal pain. HISTORY OF PRESENT ILLNESS: Briefly, the patient is a pleasant 61-year-old female, who was admitted to the hospital on 02/11/2017 for symptoms of an allergic reaction. 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 She began having throat swelling, shortness of breath, rash, and hives. S he presented to the emergency room and was treated empirically with steroids and epinephrine and sent home. She had re-presentation of symptoms and presented to the hospital and was readmitted for beatriz gonzalez. Her hospital course has been uncomplicated, but she has been persisting to have abdominal pa in and nausea and vomiting, with poor tolerance of p.o. She has a past medical history significant for gastritis, peptic disease, and H pylori infection. Car vanegas is concerned that her current symptoms are reminiscent of that prior illness. She also has a prior history of microscopic colitis, although denies diarrhea at this time. PAST MEDICAL HISTORY: Includes microscopic colitis and gastritis. SOCIAL HISTORY: She does not smoke or use drugs. She drinks alcohol rarely. FAMILY HISTORY: Negative for any allergies or peptic disease. REVIEW OF SYSTEMS: A complete 10-system review was undertaken with the patient and is negative excep t for those details described in the history of present illness. PHYSICAL EXAMINATION: GENERAL: This is a well-developed female, in no apparent distress. HEENT: H er pupils are equal, round, reactive to light and accommodation. Her sclerae are nonicteric. Her or opharynx is clear. NECK: Supple without lymphadenopathy. HEART: Regular without murmur. LUNGS: Clear to auscultation with good respiratory effort. ABDOMEN: Soft, nontender, with normoactive tank l sounds. EXTREMITIES: Free of cyanosis, clubbing, and edema. NEURO: Grossly nonfocal. PSYCH: R eveals normal mood and affect. SKIN: Warm and dry. JOINTS: Show no arthritis. LABORATORY TESTING: Shows white count of 13.14, hemoglobin of 16, hematocrit of 44.2. Sodium of 142 , potassium of 3.6, chloride of 104, bicarb of 22, BUN of 9, creatinine of 0.7. IMPRESSION AND RECOMMENDATIONS: The patient has had ongoing abdominal pain and poor tolerance of p.o . intake, despite resolution of her allergic symptoms. The differential diagnosis includes peptic di sease, gastritis, Helicobacter pylori infection, et cetera. Biliary tract disease or pancreatic dise ase is also possible, although I think unlikely given that she has normal liver function testing and lipase. At this point, I recommend she remain n.p.o. so that we can proceed with upper endoscopy. Radha vanegas will continue supportive care with acid reduction therapies, pain therapies, and antiemetics. /[id number]/MODL
[2017-02-15 04:38] LABS: ANION GAP 11 mEq/L (8-16); CALCIUM 9.5 mg/dL (8.5-10.4); CARBON DIOXIDE 26 mEq/l (22-31); CHLORIDE 98 mEq/L (97-110); CREATININE 0.8 mg/dL (0.6-1.0); GLOMERULAR FILTRATION RATE > 60; GLUCOSE 96 mg/dL (70-100); POTASSIUM 4.2 mEq/L (3.5-5.2); SODIUM 135 mEq/L (134-144)
[2017-02-15 07:26] VITALS: BP 94/55; PULSE 80; TEMP 98; O2SAT 95
[2017-02-15] MEDS: SENNOSIDES/DOCUSATE SODIUM TAB PO SCH (08:24)
[2017-02-15] MEDS: FAMOTIDINE 20 MG TAB PO SCH (08:24)
[2017-02-15] MEDS: PANTOPRAZOLE SODIUM 40 MG TAB PO SCH (08:24)
[2017-02-15] MEDS: ENOXAPARIN 40 MG/0.4 ML SYR SC SCH ×2 (08:25→08:29)
[2017-02-15] MEDS: SUCRALFATE 1 GM/10 ML UDCUP PO SCH (08:25)
[2017-02-15] MEDS: PROGESTERONE,MICR 100 MG CAP PO SCH (08:28)
--- NOTE | 2017-02-15 12:42 | ASDISCHSUM ---
Discharge Information Plan Status:Home with No Needs Medically Cleared to Leave:02/14/2017 Discharge Date:02/15/2017 11:11 AM CM D/C Disposition:Home, Routine, Self-Care ADT D/C Disposition:Home, Routine, Self-Care Projected Discharge Date:02/15/2017 11:11 AM Transportation at D/C:Family Discharge Delay Reason: Follow-Up Date:02/15/2017 11:11 AM Discharge Slot: Final Diagnosis: Placement Information Patient Contact Information Contact Name:DEBBIE Relationship: Address:[address] [place] [address] Home Phone: City:[facility] Phone: State/Zip Code:[place] [address] Email: Financial Information Financial Class:[facility] Primary Plan Desc: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 Pt w/ difficulty breathing, given epinephrine in ED; admitted for further observation. Pt lives w/ her . Anticipate pt will likely discharge home independently when medically stable. CM will cont to follow. Current discharge plan: Home independently w/ family support Date Signed: 02/12/2017 02:24 PM Electronically Signed By:Anaya Desai RN Case Management Discharge Plan Note Case Management Discharge Discharge Order Complete? Answers: Yes Discharge Comments Notes: pt d/c independent Date Signed: 02/15/2017 12:41 PM Electronically Signed By:Danica Stratton RN Intervention Information
--- NOTE | 2017-02-15 20:02 | GDS ---
[f rep st] DISCHARGE SUMMARY DISCHARGE DIAGNOSES: 1. Anaphylaxis. 2. Nausea and vomiting secondary to gastritis. 3. History of microscopic colitis. 4. Elevated blood pressure, resolved. CONSULTANTS: Dr. Josep Robertson. HISTORY OF DETAILS: Please see the history and physical dated February 11, 2017. In brief, Ms. Bolden is a 61-year-old female with a history of microscopic colitis, prior gastritis and H pylori infection who presents to the emergency department with a rash across her chest and extremities and facial swe lling after eating seafood. She was admitted to the hospital for further management. HOSPITAL COURSE: Patient is admitted to the cardiac telemetry unit. She was treated with epinephrin e in the emergency department. She did not require repeat at the dosing, but was managed with H2 blo ckers, Benadryl, prednisone, and ranitidine. She continued to have ongoing nausea and vomiting and w as unable to tolerate p.o. GI consult was obtained and she underwent upper endoscopy. This showed a normal esophagus. Gastritis was noted with a normal duodenum. She has been given IV PPI. This was transitioned to oral. In addition, she was given sucralfate. Biopsy of the stomach was obtained an d is pending. GI pathogen panel was negative. I planned to send an H pylori stool antigen, but she did not stool. On the day of discharge, her condition had improved. She was able to tolerate a full diet and wished to go home. DISPOSITION: Patient is discharged home in stable condition. FOLLOWUP: Dr. Josep Robertson, [facility] for followup on her gastric biopsy. DISCHARGE MEDICATIONS: 1. Protonix 40 mg p.o. twice daily for 12 weeks then 1 p.o. daily. 2. Sucralfate 1 g p.o. q.a.c. at bedtime. /[id number]/MODL
== END 2017-02-15 11:11 | disposition home or self-care (01) | DRG 916 ==
LOC: CED 13:24 → CEDHOLD 14:47 → F2W 17:34 → OBSVTOIN 02-12 10:22
PROVIDERS: ADMIT Hospitalist; ATTEND Hospitalist
PROC: 0DB68ZX Excision of Stomach, Via Natural or Artificial Opening Endoscopic, Diagnostic (ICD-10-PCS; principal; 2017-02-14 20:00)
DX: T78.03XA Anaphylactic reaction due to other fish, initial encounter (principal); K29.50 Unspecified chronic gastritis without bleeding
CPT/HCPCS: 71010-PO; 80048-PO; 80076-PO; 83690-PO; 85025-PO; 96374; G0378; J0171; J1200; J1650; J2060; J2250; J2405; J2550; J2765; J2780; J2920; J2930; J3010